=== PATIENT | female | born 1935 | race Caucasian/White ===

== ENCOUNTER 2020-05-01 18:09 | Inpatient (IN) | payer MEDICARE, OTHER ==
[~2020-05-01] VITALS: Ht 160 cm; Wt 59.0 kg
[~2020-05-01 18:09] MED LIST: DIVALPROEX SOD125 MG PO; ELIQUIS5 MG PO; LOPRESSOR 25 MG25 MG PO; NAMENDA10 MG PO; REMERON15 MG PO; SEROQUEL50 MG PO; ZOLOFT50 MG PO
[2020-05-01 19:38] LABS: HEMOGLOBIN 13.3 gm/dl (12.3-15.3); RED BLOOD COUNT 4.5 M/UL (4.00-5.10); WHITE BLOOD COUNT 9.4 K/UL (4.5-11.0)
[2020-05-01 20:04] LABS: BUN/CREATININE RATIO 22 (0-10)
[2020-05-02] MEDS ORDERED: ATORVASTATIN CA20 MG PO (02:26)
[2020-05-02] MEDS ORDERED: AMLODIPINE BESYL5 MG PO (02:26)
[2020-05-02] MEDS ORDERED: DEPAKOTE SPRIN125 MG PO (02:28)
[2020-05-02] MEDS ORDERED: ELIQUIS 5 MG TAB5 MG PO (02:28)
[2020-05-02] MEDS ORDERED: ACID CONTROLLER20 MG PO (02:29)
[2020-05-02] MEDS ORDERED: ISOSORBIDE MONO60 MG PO (02:30)
[2020-05-02] MEDS ORDERED: LEVOTHYROXINE88 MC1 PO (02:31)
[2020-05-02 04:17] LABS: HEMOGLOBIN 11.6 gm/dl (12.3-15.3); WHITE BLOOD COUNT 7.7 K/UL (4.5-11.0)
[2020-05-02 04:18] LABS: RED BLOOD COUNT 3.98 M/UL (4.00-5.10)
[2020-05-02] MEDS ORDERED: IPRAT-ALBUT 0.5-3 ML INH (15:32)
[2020-05-02] MEDS ORDERED: LACTULOSE10 GM/152 PO (15:33)
[2020-05-02] MEDS ORDERED: BISACODYL10 MG PR (15:34)
[2020-05-02] MEDS ORDERED: ACETAMINOPHEN500 MG PO (15:35)
[2020-05-02] MEDS ORDERED: SENNA S TABLET1 EACH PO (15:35)
--- NOTE | 2020-05-03 02:54 | NUR ---
0150 called lab to remind them of PTT on pt for 020; said they were in the ER and would be on up. Will readjust heparin drip as soon as it results.
--- NOTE | 2020-05-03 04:42 | NUR ---
I HAVE CALLED LAB AGAIN AND LET THEM KNOW THAT I HAVE A TIMED STUDY PTT FOR A HEPARIN DRIP ON THE PT THAT IS 2HRS AND 45 MIN LATE.
[2020-05-03 11:18] LABS: HEMOGLOBIN 11.6 gm/dl (12.3-15.3); RED BLOOD COUNT 3.94 M/UL (4.00-5.10); WHITE BLOOD COUNT 8.7 K/UL (4.5-11.0)
[2020-05-04 03:05] LABS: HEMOGLOBIN 11.1 gm/dl (12.3-15.3); RED BLOOD COUNT 3.82 M/UL (4.00-5.10); WHITE BLOOD COUNT 7.5 K/UL (4.5-11.0)
[2020-05-04 03:24] LABS: BUN/CREATININE RATIO 37 (0-10)
[2020-05-04 16:54] LABS: HEMOGLOBIN 12.9 gm/dl (12.3-15.3); RED BLOOD COUNT 4.41 M/UL (4.00-5.10); WHITE BLOOD COUNT 8.9 K/UL (4.5-11.0)
[2020-05-04 17:48] LABS: BUN/CREATININE RATIO 39 (0-10)
--- NOTE | 2020-05-04 18:31 | NUR ---
PT RETURNED FROM PACU RESTING. SURGICAL DRESSING IN TACT. SITE WNL. WCTM
[2020-05-05 09:10] LABS: WHITE BLOOD COUNT 9.8 K/UL (4.5-11.0)
[2020-05-05 09:18] LABS: HEMOGLOBIN 9.5 gm/dl (12.3-15.3); RED BLOOD COUNT 3.29 M/UL (4.00-5.10)
[2020-05-05] MEDS ORDERED: HYDROCODON-ACE1 EAC4 PO (13:24)
--- NOTE | 2020-05-05 16:14 | NUR ---
OK TO NOT GIVE PLATELETS PER DR LIMA BC PT PLT COUNT IS HIGHER TODAY AND WILL BE GOING BACK TO [facility].
== END 2020-05-05 16:45 | DRG 522 ==
LOC: ER1 18:09 → CDU 20:26 → M/S 20:26
PROVIDERS: Emergency Medicine; Internal Medicine; Orthopaedic Surgery; Physician Assistant; ADMIT Internal Medicine
PROC: 0SRS0JZ Replacement of Left Hip Joint, Femoral Surface with Synthetic Substitute, Open Approach (ICD-10-PCS; principal; 2020-05-04 15:35)
DX: S72.142A Displaced intertrochanteric fracture of left femur, initial encounter for closed fracture (principal); I50.32 Chronic diastolic (congestive) heart failure; I13.0 Hypertensive heart and chronic kidney disease with heart failure and stage 1 through stage 4 chronic kidney disease, or unspecified chronic kidney disease; D62 Acute posthemorrhagic anemia; W19.XXXA Unspecified fall, initial encounter; F03.90 Unspecified dementia, unspecified severity, without behavioral disturbance, psychotic disturbance, mood disturbance, and anxiety; I49.5 Sick sinus syndrome; I25.10 Atherosclerotic heart disease of native coronary artery without angina pectoris; N18.30 Chronic kidney disease, stage 3 unspecified; Z20.822 Contact with and (suspected) exposure to COVID-19; K21.9 Gastro-esophageal reflux disease without esophagitis; E03.9 Hypothyroidism, unspecified; E78.5 Hyperlipidemia, unspecified; F41.9 Anxiety disorder, unspecified; R13.10 Dysphagia, unspecified; Z95.1 Presence of aortocoronary bypass graft; Z95.0 Presence of cardiac pacemaker; Z86.711 Personal history of pulmonary embolism; Z79.01 Long term (current) use of anticoagulants; Y92.129 Unspecified place in nursing home as the place of occurrence of the external cause; Z88.0 Allergy status to penicillin; Z91.041 Radiographic dye allergy status; Z90.710 Acquired absence of both cervix and uterus
CPT/HCPCS: ECHO; 36415; 70450; 71045; 72170; 73501; 73502; 73552; 80048; 80053; 81001; 82550; 82553; 83874; 84484; 85025; 85730; 86900; 86901; 93005; 93306; 94640; 94760; 96365; 96366; 96375; 96376; 97162; 97166; 99285; C1776; J1100; J1644; J2001; J2270; J2405; J2704; J2710; J3010; J3370; J7030; J7040; J7070; J7120; U0002

== ENCOUNTER 2020-05-08 08:46 | Emergency (ER) | payer MEDICARE, OTHER ==
[~2020-05-08 08:46] MED LIST changes: +ACETAMINOPHEN500 MG PO; +ACID CONTROLLER20 MG PO; +AMLODIPINE BESYL5 MG PO; +ATORVASTATIN CA20 MG PO; +BISACODYL10 MG PR; +DEPAKOTE SPRIN125 MG PO; +ELIQUIS 5 MG TAB5 MG PO; +HYDROCODON-ACE1 EAC4 PO; +IPRAT-ALBUT 0.5-3 ML INH; +ISOSORBIDE MONO60 MG PO; +LACTULOSE10 GM/152 PO; +LEVOTHYROXINE88 MC1 PO; +SENNA S TABLET1 EACH PO
[2020-05-08 11:38] LABS: HEMOGLOBIN 9.3 gm/dl (12.3-15.3); RED BLOOD COUNT 3.16 M/UL (4.00-5.10); WHITE BLOOD COUNT 12.6 K/UL (4.5-11.0)
== END 2020-05-08 14:58 | disposition home or self-care (01) ==
LOC: ER1 08:46
PROVIDERS: Physician Assistant Medical
DX: S70.02XA Contusion of left hip, initial encounter (principal); I50.9 Heart failure, unspecified; N18.9 Chronic kidney disease, unspecified; F03.90 Unspecified dementia, unspecified severity, without behavioral disturbance, psychotic disturbance, mood disturbance, and anxiety; Z98.890 Other specified postprocedural states; Z86.711 Personal history of pulmonary embolism; Z88.0 Allergy status to penicillin; W19.XXXA Unspecified fall, initial encounter; Y92.129 Unspecified place in nursing home as the place of occurrence of the external cause
CPT/HCPCS: 70450; 71045; 72192; 80053; 82550; 82553; 83874; 84484; 85025; 99284

== ENCOUNTER 2020-08-25 09:09 | Emergency (ER) | payer MEDICARE, OTHER, BC | END 2020-08-25 15:20 | LOC: ER1 09:09 | DX: S80.02XA Contusion of left knee, initial encounter (principal); S70.02XA Contusion of left hip, initial encounter; E78.00 Pure hypercholesterolemia, unspecified; E03.9 Hypothyroidism, unspecified; I25.10 Atherosclerotic heart disease of native coronary artery without angina pectoris; I10 Essential (primary) hypertension; K21.9 Gastro-esophageal reflux disease without esophagitis; Z79.01 Long term (current) use of anticoagulants; Z95.1 Presence of aortocoronary bypass graft; W19.XXXA Unspecified fall, initial encounter; Y92.009 Unspecified place in unspecified non-institutional (private) residence as the place of occurrence of the external cause | CPT/HCPCS: 70450; 73502; 73562; 73590; 99285 ==

== ENCOUNTER 2020-10-26 21:51 | Emergency (ER) | payer MEDICARE, BC, OTHER ==
[~2020-10-26 21:51] MED LIST changes: -ACETAMINOPHEN500 MG PO; -ACID CONTROLLER20 MG PO; -ATORVASTATIN CA20 MG PO; -DIVALPROEX SOD125 MG PO; -IPRAT-ALBUT 0.5-3 ML INH; -LEVOTHYROXINE88 MC1 PO; -SENNA S TABLET1 EACH PO; -SEROQUEL50 MG PO; -ZOLOFT50 MG PO
[2020-10-26 23:30] LABS: HEMOGLOBIN 12.5 gm/dl (12.3-15.3); RED BLOOD COUNT 4.13 M/UL (4.00-5.10); WHITE BLOOD COUNT 7.9 K/UL (4.5-11.0)
[2020-10-27 00:08] LABS: BUN/CREATININE RATIO 22 (0-10)
[2020-11-10] MEDS ORDERED: ATORVASTATIN CA20 MG PO (02:26)
[2020-11-10] MEDS ORDERED: FAMOTIDINE40 MG PO (02:29)
[2020-11-10] MEDS ORDERED: LEVOTHYROXINE25 MCG PO (02:31)
== END 2020-10-27 01:44 | disposition home or self-care (01) ==
LOC: ER1 21:51
PROVIDERS: Family Medicine
DX: S09.90XA Unspecified injury of head, initial encounter (principal); D69.6 Thrombocytopenia, unspecified; F03.90 Unspecified dementia, unspecified severity, without behavioral disturbance, psychotic disturbance, mood disturbance, and anxiety; Z88.0 Allergy status to penicillin; W22.8XXA Striking against or struck by other objects, initial encounter; Y92.129 Unspecified place in nursing home as the place of occurrence of the external cause
CPT/HCPCS: 70450; 72125; 80053; 82550; 82553; 83874; 84484; 85025; 99284

== ENCOUNTER 2020-11-10 08:03 | Inpatient (IN) | payer MEDICARE, BC, OTHER ==
[~2020-11-10] VITALS: Ht 160 cm; Wt 58.1 kg
[~2020-11-10 08:03] MED LIST changes: +ATORVASTATIN CA20 MG PO; +FAMOTIDINE40 MG PO; +LEVOTHYROXINE25 MCG PO
[2020-11-10 08:49] LABS: HEMOGLOBIN 13.6 gm/dl (12.3-15.3); RED BLOOD COUNT 4.51 M/UL (4.00-5.10); WHITE BLOOD COUNT 7.9 K/UL (4.5-11.0)
[2020-11-10 09:23] LABS: BUN/CREATININE RATIO 18 (0-10)
[2020-11-10] MEDS ORDERED: DIVALPROEX SOD125 MG PO (15:29)
[2020-11-10] MEDS ORDERED: SEROQUEL50 MG PO (15:31)
[2020-11-10] MEDS ORDERED: ZOLOFT100 MG PO (15:31)
[2020-11-10] MEDS ORDERED: IPRAT-ALBUT 0.5-3 ML INH (15:32)
[2020-11-10] MEDS ORDERED: SENNA S TABLET1 EACH PO (15:35)
[2020-11-10] MEDS ORDERED: ACETAMINOPHEN500 MG PO (15:35)
[2020-11-10] MEDS ORDERED: DOCUSATE SODIU100 MG PO (15:41)
[2020-11-10] MEDS ORDERED: FERROUS SULFAT325 MG PO (15:45)
[2020-11-10] MEDS ORDERED: LORAZEPAM0.5 MG PO (15:49)
[2020-11-10] MEDS ORDERED: MEGACE 400400 MG/10 PO (15:50)
[2020-11-10] MEDS ORDERED: ZINC OXIDE60 GM EXT (16:04)
[2020-11-10] MEDS ORDERED: ZOFRAN4 MG PO (16:05)
[2020-11-10] MEDS ORDERED: QUETIAPINE FUMA25 MG PO (16:16)
[2020-11-10 19:38] LABS: HEMOGLOBIN 12.2 gm/dl (12.3-15.3); RED BLOOD COUNT 4.09 M/UL (4.00-5.10)
[2020-11-11 03:12] LABS: HEMOGLOBIN 12.1 gm/dl (12.3-15.3); RED BLOOD COUNT 4.06 M/UL (4.00-5.10); WHITE BLOOD COUNT 7.3 K/UL (4.5-11.0)
[2020-11-12 05:05] LABS: HEMOGLOBIN 10.8 gm/dl (12.3-15.3); RED BLOOD COUNT 3.79 M/UL (4.00-5.10); WHITE BLOOD COUNT 8.7 K/UL (4.5-11.0)
[2020-11-12 05:36] LABS: BUN/CREATININE RATIO 18 (0-10)
[2020-11-13 05:12] LABS: RED BLOOD COUNT 3.84 M/UL (4.00-5.10); WHITE BLOOD COUNT 10.1 K/UL (4.5-11.0)
[2020-11-13] MEDS ORDERED: HYDROCODON-ACE1 EAC4 PO (10:28)
[2020-11-14 06:19] LABS: HEMOGLOBIN 9.2 gm/dl (12.3-15.3); WHITE BLOOD COUNT 7.9 K/UL (4.5-11.0)
[2020-11-14 06:34] LABS: RED BLOOD COUNT 3.24 M/UL (4.00-5.10)
[2020-11-14] MEDS ORDERED: HYDROCODON-ACE1 EAC4 PO (09:58)
== END 2020-11-14 15:10 | DRG 481 ==
LOC: ER1 08:03 → M/S 13:38 → CDU 13:38 → M/S 17:55
PROVIDERS: Emergency Medicine; Internal Medicine; Orthopaedic Surgery; Physician Assistant Medical; ADMIT Emergency Medicine
PROC: B24BZZ4 Ultrasonography of Heart with Aorta, Transesophageal (ICD-10-PCS; 2020-11-10)
PROC: 0QS604Z Reposition Right Upper Femur with Internal Fixation Device, Open Approach (ICD-10-PCS; principal; 2020-11-12 15:26)
DX: S72.001A Fracture of unspecified part of neck of right femur, initial encounter for closed fracture (principal); I13.0 Hypertensive heart and chronic kidney disease with heart failure and stage 1 through stage 4 chronic kidney disease, or unspecified chronic kidney disease; Z20.822 Contact with and (suspected) exposure to COVID-19; Z66 Do not resuscitate; F41.9 Anxiety disorder, unspecified; D69.6 Thrombocytopenia, unspecified; I25.10 Atherosclerotic heart disease of native coronary artery without angina pectoris; I49.5 Sick sinus syndrome; G30.9 Alzheimer's disease, unspecified; F02.80 Dementia in other diseases classified elsewhere, unspecified severity, without behavioral disturbance, psychotic disturbance, mood disturbance, and anxiety; K21.9 Gastro-esophageal reflux disease without esophagitis; N18.30 Chronic kidney disease, stage 3 unspecified; E78.5 Hyperlipidemia, unspecified; I48.91 Unspecified atrial fibrillation; E03.9 Hypothyroidism, unspecified; I08.2 Rheumatic disorders of both aortic and tricuspid valves; Z95.0 Presence of cardiac pacemaker; Z86.711 Personal history of pulmonary embolism; Z95.1 Presence of aortocoronary bypass graft; Z79.01 Long term (current) use of anticoagulants; Z88.0 Allergy status to penicillin; Z91.041 Radiographic dye allergy status; Z90.710 Acquired absence of both cervix and uterus; Z90.49 Acquired absence of other specified parts of digestive tract; Z91.81 History of falling; Z82.49 Family history of ischemic heart disease and other diseases of the circulatory system; Z82.3 Family history of stroke
CPT/HCPCS: ECHO; 36415; 70450; 71045; 73502; 73700; 76000; 80048; 80053; 82550; 82553; 83735; 83874; 84484; 85025; 85027; 85610; 85730; 86850; 86900; 86901; 93306; 94760; 96374; 96375; 97110-GP-CQ; 97116-GP-CQ; 97162; 97166; 99285; C1713; G0480; J0690; J1100; J1170; J1644; J2060; J2270; J2405; J2704; J2710; J3010; J7030; U0002

== ENCOUNTER 2021-01-17 21:21 | Emergency (ER) | payer MEDICARE ==
[~2021-01-17 21:21] MED LIST changes: +ACETAMINOPHEN500 MG PO; +DIVALPROEX SOD125 MG PO; +DOCUSATE SODIU100 MG PO; +FERROUS SULFAT325 MG PO; +IPRAT-ALBUT 0.5-3 ML INH; +LORAZEPAM0.5 MG PO; +MEGACE 400400 MG/10 PO; +QUETIAPINE FUMA25 MG PO; +SENNA S TABLET1 EACH PO; +SEROQUEL50 MG PO; +ZINC OXIDE60 GM EXT; +ZOFRAN4 MG PO; +ZOLOFT100 MG PO
== END 2021-01-18 00:21 | disposition home or self-care (01) ==
LOC: ER1 21:21
DX: S01.81XA Laceration without foreign body of other part of head, initial encounter (principal); F03.90 Unspecified dementia, unspecified severity, without behavioral disturbance, psychotic disturbance, mood disturbance, and anxiety; Z79.01 Long term (current) use of anticoagulants; W05.0XXA Fall from non-moving wheelchair, initial encounter
CPT/HCPCS: 12013; 70450; 72125; 99283

== ENCOUNTER 2021-06-03 06:53 | Inpatient (IN) | payer MEDICARE, BC, OTHER ==
[~2021-06-03] VITALS: Ht 152.4 cm; Wt 49.9 kg
[~2021-06-03 06:53] MED LIST changes: -ELIQUIS 5 MG TAB5 MG PO; +ELIQUIS2.5 MG PO; -QUETIAPINE FUMA25 MG PO; +QUETIAPINE FUMA50 MG PO
[2021-06-03 07:35] LABS: HEMOGLOBIN 13.4 gm/dl (12.3-15.3); RED BLOOD COUNT 4.5 M/UL (4.00-5.10); WHITE BLOOD COUNT 6.9 K/UL (4.5-11.0)
[2021-06-03] MEDS ORDERED: HYDROCODON-ACE1 EAC4 PO (10:11)
[2021-06-03] MEDS ORDERED: [UNRECOGNIZED DRUG - OTHER] IM (10:13)
[2021-06-03] MEDS ORDERED: GERI-KOT8.6 MG PO (10:13)
[2021-06-03] MEDS ORDERED: DECADRON IM (10:13)
[2021-06-03] MEDS ORDERED: MEGESTROL400 MG/12 PO (10:14)
[2021-06-03] MEDS ORDERED: LORAZEPAM0.5 MG PO (10:14)
[2021-06-03] MEDS ORDERED: BISACODYL10 MG PR (10:15)
[2021-06-03] MEDS ORDERED: LACTULOSE10 GM/15 M PO (10:15)
[2021-06-03] MEDS ORDERED: ZINC OXIDE56.7 G1 TOP (10:15)
[2021-06-03] MEDS ORDERED: SYSTANE COMPLET10 ML OS (10:16)
[2021-06-04 01:04] LABS: ACINETOBACTER BAUMANNII Not Detected (Negative); CANDIDA ALBICANS Not Detected (Negative); CANDIDA KRUSEI Not Detected (Negative); CANDIDA TROPICALIS Not Detected (Negative); ENTEROCOCCUS Not Detected (Negative); ESCHERICHIA COLI Not Detected (Negative); HAEMOPHILUS INFLUENZAE Not Detected (Negative); KLEBSIELLA OXYTOCA Not Detected (Negative); KLEBSIELLA PNEUMONIAE Not Detected (Negative); KPC-CARBAPENEM-RESISTANCE GENE Not Detected (Negative); PROTEUS Not Detected (Negative); PSEUDOMONAS AERUGINOSA Not Detected (Negative); SERRATIA MARCESANS Not Detected (Negative); STREP AGALACTIAE (GROUP B) Not Detected (Negative); STREP PYOGENES (GROUP A) Not Detected (Negative); STREPTOCOCCUS Not Detected (Negative); vanA/B (VANCOMYCIN RESIST GENE Not Detected (Negative)
[2021-06-04 02:21] LABS: mecA (METHICILLIN RESIST GENE DETECTED (Negative)
[2021-06-04 02:22] LABS: STAPHYLOCOCCUS DETECTED (Negative)
[2021-06-04 02:24] LABS: STAPHYLOCOCCUS AUREUS DETECTED (Negative)
[2021-06-04 04:45] LABS: HEMOGLOBIN 12.5 gm/dl (12.3-15.3); RED BLOOD COUNT 4.2 M/UL (4.00-5.10)
== END 2021-06-04 17:22 | disposition expired | DRG 871 ==
LOC: ER1 06:53 → CDU 08:36 → PROG CARE 12:19 → CCU 06-04 10:52
PROVIDERS: Emergency Medicine; Internal Medicine Pulmonary Disease; ADMIT Internal Medicine
PROC: 8E0ZXY6 Isolation (ICD-10-PCS; principal; 2021-06-03)
PROC: XW033E5 Introduction of Remdesivir Anti-infective into Peripheral Vein, Percutaneous Approach, New Technology Group 5 (ICD-10-PCS; 2021-06-03)
PROC: 3E0333Z Introduction of Anti-inflammatory into Peripheral Vein, Percutaneous Approach (ICD-10-PCS; 2021-06-03)
PROC: 5A09457 Assistance with Respiratory Ventilation, 24-96 Consecutive Hours, Continuous Positive Airway Pressure (ICD-10-PCS; 2021-06-03)
PROC: 3E043XZ Introduction of Vasopressor into Central Vein, Percutaneous Approach (ICD-10-PCS; 2021-06-04)
DX: A41.89 Other specified sepsis (principal); U07.1 COVID-19; J12.82 Pneumonia due to coronavirus disease 2019; Z51.5 Encounter for palliative care; J96.01 Acute respiratory failure with hypoxia; R65.21 Severe sepsis with septic shock; N17.0 Acute kidney failure with tubular necrosis; J15.9 Unspecified bacterial pneumonia; G93.41 Metabolic encephalopathy; K72.00 Acute and subacute hepatic failure without coma; N17.9 Acute kidney failure, unspecified; I50.32 Chronic diastolic (congestive) heart failure; E87.1 Hypo-osmolality and hyponatremia; Z66 Do not resuscitate; I12.9 Hypertensive chronic kidney disease with stage 1 through stage 4 chronic kidney disease, or unspecified chronic kidney disease; K21.9 Gastro-esophageal reflux disease without esophagitis; N18.30 Chronic kidney disease, stage 3 unspecified; R13.10 Dysphagia, unspecified; F41.9 Anxiety disorder, unspecified; K59.00 Constipation, unspecified; E87.8 Other disorders of electrolyte and fluid balance, not elsewhere classified; E86.0 Dehydration; G89.4 Chronic pain syndrome; R29.6 Repeated falls; D69.6 Thrombocytopenia, unspecified; I25.10 Atherosclerotic heart disease of native coronary artery without angina pectoris; E78.5 Hyperlipidemia, unspecified; G40.909 Epilepsy, unspecified, not intractable, without status epilepticus; E03.9 Hypothyroidism, unspecified; F03.90 Unspecified dementia, unspecified severity, without behavioral disturbance, psychotic disturbance, mood disturbance, and anxiety; Z86.711 Personal history of pulmonary embolism; Z79.01 Long term (current) use of anticoagulants; Z95.0 Presence of cardiac pacemaker; Z95.1 Presence of aortocoronary bypass graft; Z88.5 Allergy status to narcotic agent; Z88.0 Allergy status to penicillin; Z23 Encounter for immunization; Z91.81 History of falling
CPT/HCPCS: 0240U; 36415; 36600; 71045; 80048; 80053; 81001; 82550; 82553; 82728; 82803; 83605; 83615; 83735; 83880; 84100; 84484; 85025; 85379; 85384; 85610; 85730; 86140; 87040; 87077; 87150; 87186; 93005; 94640; 94660; 94664; 94760; 96374; 96375; 99285; C9113; J0248; J0456; J0696; J1100; J2020; J2060; J2270; J7030